=== PATIENT | female | born 2000 | race Caucasian/White ===

== ENCOUNTER 2019-04-29 21:16 | Emergency (ER) | payer OTHER ==
--- NOTE | 2019-04-29 21:18 | UC ---
Allergic Reaction HPI - HPI Summary HPI Summary: 18 yo female presents with allergic reaction. She tells me that she has a history of known environmental allergies and has seen an photographer's model in the past and is on daily allergy "drops". Tonight she was walking on [facility] around 1999 and began to experience sinus congestion and watery eyes. Soon after she began to have some itching on her arms and noticed some eye swelling. She took 2 claritin, 50mg of benadryl, and 150mg of zantac. Since that time she has had regression of her symptoms and good improvement, but still has mild periorbital swelling. At no point has she experienced lip/tongue/throat edema, difficulty swallowing or breathing, wheezing, SOB, chest pain, n/v, or dizziness. - History of Current Complaint Stated Complaint: POSS ALLERGIC REACTION Hx Obtained From: Patient Onset/Duration: Sudden Onset Severity Initially: Moderate Severity Currently: Mild Pain Intensity: 3 Pain Scale Used: 0-10 Numeric - Allergies/Home Medications Allergies/Adverse Reactions: Allergies Allergy/AdvReac Type Severity Reaction Status Date / Time No Known Allergies Allergy Verified 04/29/19 21:31 Home Medications: Home Medications LoraTADine TAB(NF) [Claritin 10 MG TAB(NF)] 20 mg PO DAILY 04/29/19 [History Confirmed 04/29/19] diphenhydrAMINE HCl [Benadryl Allergy] 50 mg PO 04/29/19 [History] raNITIdine HCl [Zantac] 150 mg PO 04/29/19 [History] PMH/Surg Hx/FS Hx/Imm Hx - Additional Past Medical History Additional PMH: Allergies - Surgical History Surgical History: None - Family History Known Family History: Positive: None - Social History Occupation: Student Lives: Dormitory/Roommates Alcohol Use: Occasionally Substance Use Type: None Smoking Status (MU): Never Smoked Tobacco Review of Systems All Other Systems Reviewed And Are Negative: No Constitutional: Positive: Negative Skin: Positive: Rash Eyes: Positive: Other - swelling ENT: Positive: Negative Respiratory: Positive: Negative Cardiovascular: Positive: Negative Gastrointestinal: Positive: Negative Neurovascular: Positive: Negative Neurological: Positive: Negative Psychological: Positive: Negative Physical Exam - Summary Physical Exam Summary: GENERAL: NAD. WDWN. No distress. SKIN: Faint scattered urticaria on abdomen and b/l arms - resolving. HEENT: Mild periorbital edema. No lip or other facial edema. Airway patent without oropharyngeal edema. NECK: Supple. Nontender. No lymphadenopathy. CHEST: CTAB. No wheezing. No accessory muscle use. Breathing comfortably and in no distress. CV: RRR. Pulses intact. Cap refill <2seconds NEURO: Alert. PSYCH: Age appropriate behavior. Triage Information Reviewed: Yes Vital Signs: Vital Signs: Temp Pulse Resp BP Pulse Ox 98.8 F 87 18 125/73 98 04/29/19 21:25 04/29/19 21:25 04/29/19 21:25 04/29/19 21:25 04/29/19 21:25 Vital Signs Reviewed: Yes Allergic Reaction Course/Dx - Course Course Of Treatment: Suspect environmental allergic reaction. Her symptoms are resolving nicely with the benadryl, zantac, and claritin that she took prior to arriving. She was given 40mg IM of kenalog in the clinic and will rx for 4 days of prednisone to start tomorrow. Continue taking daily bendaryl or claritin. Recommend f/u with her photographer's model for further allergy testing or adjustment of her allergy medication dosing. If she develops worsening swelling, difficulty breathing, SOB, or new symptoms - she has an epipen that she can use if in distress and advised to call 911 or go to the ED. Pt voiced understanding and is in agreement with the plan. - Differential Dx/Diagnosis Provider Diagnosis: Periorbital edema, Environmental allergies Discharge ED - Sign-Out/Discharge Documenting (check all that apply): Patient Departure All imaging exams completed and their final reports reviewed: No Studies - Discharge Plan Condition: Stable Disposition: HOME Prescriptions: predniSONE TAB* [Deltasone TAB*] 50 mg PO DAILY #4 tab Patient Education Materials: Allergies (ED), General Allergic Reaction (ED) Referrals: No Primary Care Phys,NOPCP [Primary Care Provider] - Additional Instructions: If you develop a fever, shortness of breath, chest pain, new or worsening symptoms - please call your PCP or go to the ED immediately. - Take prednisone exactly as prescribed until gone - starting tomorrow - Okay to take Benadryl 25mg every 6 hours as needed for itching and hives. This medication may cause drowsiness - do NOT drive, operate machinery or drink alcohol while taking Benadryl -Avoid getting over-heated (hot showers, hot tubs, exercise) for at least 48 hours - Try to avoid aspirin, NSAIDs (Motrin, Aleve, Naprosyn) for 2-3 days - Okay to apply cool compresses to the area of injury -Contact your doctor or return here with questions or concerns - Billing Disposition and Condition Condition: STABLE Disposition: Home
[2019-04-29 21:31] VITALS: BP 125/73
[2019-04-29] MEDS ORDERED: Triamcinolone Acetonide* 40 MG/ML 1 ML VIAL IM ONE (21:45)
== END 2019-04-29 22:00 | disposition home or self-care (01) ==
LOC: UCEAST 21:16
DX: T78.49XA Other allergy, initial encounter (principal); X58.XXXA Exposure to other specified factors, initial encounter
CPT/HCPCS: 96372; 99202; G0463; J3301